=== PATIENT | male | born 1970 | race Caucasian/White ===

== ENCOUNTER 2022-05-24 10:51 | Emergency (ER) | payer OTHER ==
[~2022-05-24] VITALS: Ht 172.7 cm; Wt 70.8 kg
[~2022-05-24 10:51] MED LIST: ACET-687 PO; LEVO500T51 PO; METR250T PO
--- NOTE | 2022-05-24 11:26 | NUR ---
ARRIVAL PT ARRIVED AMBULATORY TO ED 6 WITH C/O UPPER ABD PAIN AND HAVING A SOUR STOMACH WITH BURPS. PT HAS COLON CANCER UNTREATED. VITALS TAKEN AND DR HANNA.
[2022-05-24 11:34] VITALS: BP 152/109
[2022-05-24] MEDS ORDERED: MYLANTA PO STA (11:36)
[2022-05-24] MEDS ORDERED: LIDOCAINE HCL VISCOUS MM STA (11:36)
[2022-05-24] MEDS ORDERED: MYLANTA ONE (11:42)
[2022-05-24] MEDS ORDERED: LIDOCAINE HCL VISCOUS ONE (11:43)
[2022-05-24 11:56] LABS: BASOPHIL % 0.3 % (0.0-0.2); EOSINOPHIL # 0.1 10^3/uL (0.0-0.2); EOSINOPHIL % 1.1 % (0.0-5.0); LYMPHOCYTES # 1.84 10^3/uL1 (1.0-4.8); LYMPHOCYTES % 16.3 % (24.0-44.0); MEAN CORP HGB 30.3 pg (26-34); MONOCYTES # 0.8 10^3/uL (0.3-0.8); MONOCYTES % 6.7 % (5.0-12.0); NEUTROPHIL # 8.5 10^3/uL (1.8-7.7); NEUTROPHILS % 75.2 % (41.0-85.0); PLATELET COUNT 261 10^3/uL (150-400); RED CELL DISTRIBUTION WIDTH 12.1 % (11.5-14.5)
[2022-05-24 11:59] LABS: BILIRUBIN,URINE NEGATIVE (NEGATIVE); UROBILINOGEN,URINE 0.2 E.U./dL (0.2)
[2022-05-24 12:13] LABS: CARBON DIOXIDE 27.9 mmol/L (20.0-32)
[2022-05-24] MEDS ORDERED: NS 1000ML 1,000 ML STA (12:16)
--- NOTE | 2022-05-24 12:16 | NUR ---
CRITICAL LAB BG [id number], NOTIFIED AT THIS TIME.
[2022-05-24] MEDS ORDERED: NS 1000ML 1,000 ML ONE (12:24)
[2022-05-24] MEDS ORDERED: HUMULIN R ONE (12:24)
[2022-05-24] MEDS ORDERED: HUMULIN R IV ONE (12:30)
[2022-05-24 13:25] VITALS: BP 143/103
--- NOTE | 2022-05-24 13:58 | ER.PDOC ---
General Chief Complaint: Abdomen Pain Stated Complaint: ABD PAIN Time seen by MD: 11:30 Source: patient Exam Limitations: no limitations History of Present Illness Initial Comments 51-year-old male recent diagnosis of colorectal cancer, presents with an episode of epigastric pain, bitter taste acid reflux in his mouth. Did have an episode of emesis. Emesis was clear, nonbloody nonbilious. No fever or chills. States he has not had a bowel movement in 3 days Allergies: Uncoded Allergies: NKDA (Allergy, Unknown, 11/10/15) Home Meds Active Scripts Acetaminophen With Codeine (TYLENOL WITH CODEINE #4 TABLET) 1 Each Tablet, 1-2 EACH PO Q4HR PRN for PAIN, #30 Prov:VIK KANG MD 11/11/15 Reported Medications Metronidazole (FLAGYL) 250 Mg Tablet, 1 TAB PO TID, #15 TAB 11/11/15 Levofloxacin (LEVAQUIN) 500 Mg Tablet, 1 TAB PO DAILY, #5 TAB 11/11/15 Vital Signs First Vital Signs Date Time Temp Pulse Resp B/P (MAP) Pulse Ox O2 Delivery O2 Flow Rate FiO2 05/24/22 11:34 97.7 96 18 152/109 (123) 96 Room Air* 0 21 Last Vital Signs Date Time Temp Pulse Resp B/P (MAP) Pulse Ox O2 Delivery O2 Flow Rate FiO2 05/24/22 13:25 97.7 94 18 143/103 (116) 96 Room Air* 0 21 Past Medical History Medical History: no pertinent history Surgical History: Colonoscopy Social History Alcohol Use: none Drug Use: none All Other Systems: Reviewed and Negative Physical Exam General Appearance: No Apparent Distress HEENT: Normal ENT Inspection Neck: Normal Inspection Respiratory: no respiratory distress Cardiovascular: Regular Rate, Rhythm Gastrointestinal: Non Tender, Soft Back: Normal Inspection Extremities: Normal Inspection, No Pedal Edema Neurologic/Psychiatric: Alert Skin: Normal Color Results/Orders Results/Orders Orders - BRENNAN BOUCHER MD Cbc With Auto Diff (05/24/22 11:36) Comprehensive Metabolic Panel (05/24/22 11:36) Lipase. (05/24/22 11:36) Urinalysis (05/24/22 11:36) Mag Hydrox/Aluminum Hyd/Simeth (Mylanta) (05/24/22 11:36) Lidocaine Hcl (Lidocaine Hcl Viscous) (05/24/22 11:36) Mag Hydrox/Aluminum Hyd/Simeth (Mylanta) (05/24/22 11:42) Lidocaine Hcl (Lidocaine Hcl Viscous) (05/24/22 11:43) 0.9 % Sodium Chloride (Ns 1000ml) (05/24/22 12:16) Insulin Regular, Human (Humulin R) (05/24/22 12:30) 0.9 % Sodium Chloride (Ns 1000ml) (05/24/22 12:24) Insulin Regular, Human (Humulin R) (05/24/22 12:24) Vital Signs Date Time Temp Pulse Resp B/P (MAP) Pulse Ox O2 Delivery O2 Flow Rate FiO2 05/24/22 13:25 97.7 94 18 143/103 (116) 96 Room Air* 0 21 05/24/22 11:34 97.7 96 18 05/24/22 11:34 97.7 96 18 96 05/24/22 11:34 97.7 96 18 152/109 (123) 96 Room Air* 0 21 Administered Medications Medications (Trade) Dose Ordered Sig/Sandoval Route PRN Reason Start Time Stop Time Status Last Admin Dose Admin Insulin Human Regular (Humulin R) 5 unit OT ONCE IV 05/24/22 12:30 05/24/22 12:31 DC 05/24/22 12:28 5 UNIT Lidocaine HCl (Lidocaine HCl Viscous) 15 ml STAT STAT MM 05/24/22 11:36 05/24/22 11:38 DC 05/24/22 11:48 15 ML Sodium Chloride 1,000 ml @ 0 mls/hr Q0M STAT IV 05/24/22 12:16 05/24/22 12:18 DC 05/24/22 12:28 1,200 MLS/HR Laboratory Tests Test 05/24/22 11:49 White Blood Count 11.3 10^3/uL (4.5-11.0) H Red Blood Count 5.94 10^6/uL (4.50-5.90) H Hemoglobin 18.0 g/dL (13.9-16.3) H Hematocrit 51.0 % (37.0-53.0) Mean Corpuscular Volume 85.9 fL (78-100) Mean Corpuscular Hemoglobin 30.3 pg (26-34) Mean Corpuscular Hemoglobin Concent 35.3 g/dL (33-36.5) Red Cell Distribution Width 12.1 % (11.5-14.5) Platelet Count 261 10^3/uL (150-400) Mean Platelet Volume 9.5 fL (7.8-11.0) Neutrophils (%) (Auto) 75.2 % (41.0-85.0) Lymphocytes (%) (Auto) 16.3 % (24.0-44.0) L Monocytes (%) (Auto) 6.7 % (5.0-12.0) Neutrophils # (Auto) 8.5 10^3/uL (1.8-7.7) H Lymphocytes # (Auto) 1.84 10^3/uL1 (1.0-4.8) Monocytes # (Auto) 0.8 10^3/uL (0.3-0.8) Absolute Immature Granulocyte (auto 0.05 10^3 u/L (0-2) Absolute Eosinophils (auto) 0.1 10^3/uL (0.0-0.2) Immature Granulocytes % 0.40 % (0.00-0.50) Eosinophils % 1.1 % (0.0-5.0) Basophils % 0.3 % (0.0-0.2) H Basophils # 0.0 10^3/uL (0.0-0.1) Urine Collection Type UNKNOWN Urine Color YELLOW Urine Appearance CLEAR Urine Bilirubin NEGATIVE (NEGATIVE) Urine Ketones NEGATIVE (NEGATIVE) Urine Specific [place] 1.015 (1.005-1.030) Urine pH 5.0 (4.5-8.0) Urine Protein NEGATIVE (NEGATIVE) Urine Urobilinogen 0.2 E.U./dL (0.2) Urine Nitrate NEGATIVE (NEGATIVE) Urine Leukocyte Esterase NEGATIVE (NEGATIVE) Urine Glucose (Auto)(UA) 500 mg/dL (NEGATIVE) H Urine Blood NEGATIVE (NEGATIVE) Sodium Level 130 mmol/L (132-145) L Potassium Level 4.0 mmol/L (3.6-5.2) Chloride Level 96.0 mmol/L (96-109) Carbon Dioxide Level 27.9 mmol/L (20.0-32) Anion Gap 10.1 Blood Urea Nitrogen 10 mg/dL (7-18) Creatinine 0.73 mg/dL (0.59-1.40) Estimated GFR () 136.0 (>/=60) Est GFR (CKD-EPI)(Non-Afr [place]) 112.4 (>/=60) BUN/Creatinine Ratio 13.0 Glucose Level 444 mg/dL (70-110) *H Calcium Level 9.5 mg/dL (8.4-10.5) Total Bilirubin 0.6 mg/dL (0.2-1.0) Aspartate Amino Transferase (AST) 43 U/L (0-35) H Alanine Aminotransferase (ALT) 99 U/L (12-78) H Alkaline Phosphatase 196 U/L (50-136) H Total Protein 7.9 g/dL (6.4-8.2) Albumin 3.5 g/dL (3.4-5.0) Globulin 4.4 Albumin/Globulin Ratio 0.795 Lipase 16 U/L (16-77) Progress Progress No fever, no white count, benign abdominal exam, no tenderness. No distention either. His symptoms are entirely resolved after GI cocktail here. Counseled him on [id number] medications for GERD. MiraLAX for the constipation. Follow-up with primary ER DEPART Departure Time of Disposition: 13:56 Disposition: 01 HOME / SELF CARE / HOMELESS Impression: Primary Impression: GERD (gastroesophageal reflux disease) Condition: Improved Referrals: PCP,UNKNOWN (PCP) PRIMARY CARE PROVIDER Additional Instructions: Use over the counter antacids for the acid reflux. Use Miralax (over the counter), at least 3 capfulls on the first day for the constipation, then 1 cap daily Duration or Time Spent with Pa: BRENNAN Crowell MD May 24, 2022 13:58
== END 2022-05-24 14:10 | disposition home or self-care (01) ==
LOC: ER 10:51
DX: K21.9 Gastro-esophageal reflux disease without esophagitis (principal); C19 Malignant neoplasm of rectosigmoid junction
CPT/HCPCS: 99283; 96374; 96361; 81003; 80053; 85025; 36415; 83690; J7030; J1815; J3490